=== PATIENT | male | born 1990 | race Caucasian/White ===

== ENCOUNTER 2016-09-16 12:58 | Emergency (ER) | payer SELFPAY ==
[~2016-09-16 12:58] MED LIST: BACTROBAN22 GM TP; FLEXERIL10 MG PO; NO MEDICATIONS; VOLTAREN75 MG PO
== END 2016-09-16 14:28 | disposition home or self-care (01) ==
LOC: SED 12:58
DX: T40.1X1A Poisoning by heroin, accidental (unintentional), initial encounter (principal); F17.210 Nicotine dependence, cigarettes, uncomplicated; Z88.0 Allergy status to penicillin
CPT/HCPCS: 99282